=== PATIENT | female | born 1990 | race African-American/Black ===

== ENCOUNTER 2020-12-29 18:17 | Emergency (ER) | payer BC, OTHER ==
[~2020-12-29] VITALS: Ht 160 cm; Wt 71.0 kg
[~2020-12-29 18:17] MED LIST: PRED20TA PO
--- NOTE | 2020-12-29 18:54 | PHYS DOC ---
Past History Past Medical History: No Pertinent History Past Surgical History: No Surgical History, Other Alcohol Use: Rarely Drug Use: None Adult General Chief Complaint Chief Complaint: RECTAL BLEED HPI HPI Patient is a 30-year-old female, otherwise healthy who presents to the emergency department with a chief complaint of bright red rectal bleeding, after a bowel movement when she wipes on the tissue. States she never had anything like this before. States that she is having no real pain with this and only sees the blood, on the tissue after a bowel movement. States is not very much, but has done this over the last 4 days. States that she does not have any hematuria or vaginal bleeding and is having no pain. States she has been having bowel movements almost daily as she usually does but does seem a little harder than usual. States she has had issues with constipation in the past. Denies any recent traumas, travels, fevers, chest pain, shortness of breath, abdominal pain, nausea, vomiting, dysuria, hematuria, diarrhea. Review of Systems Review of Systems Review of systems otherwise unremarkable except noted in HPI Allergies Allergies Allergies Coded Allergies Type Severity Reaction Last Updated Verified Penicillins Allergy Intermediate 07/13/16 Yes ibuprofen Allergy Intermediate rash/swelling 11/28/16 Yes aspirin Allergy Unknown 12/29/20 Yes naproxen Allergy Unknown 12/29/20 Yes Physical Exam Physical Exam Constitutional: Well developed, well nourished, no acute distress, non-toxic appearance. [] HENT: Normocephalic, atraumatic, Eyes: conjunctiva normal, no discharge. [] Cardiovascular:Heart rate regular rhythm, no murmur [] Lungs & Thorax: Bilateral breath sounds clear to auscultation [] Abdomen: soft, no tenderness, no masses, no pulsatile masses. Rectal: No obvious external lesions, trauma or blood. Mild tenderness just inside the rectum on left anterior lateral side with no blood noticed. [] Skin: Warm, dry, no erythema, no rash. [] Back: no CVA tenderness. [] Extremities: No tenderness, no cyanosis, no clubbing, ROM intact, no edema. [] Neurologic: Alert and oriented X 3, normal motor function, normal sensory function, no focal deficits noted. [] Psychologic: Affect normal, judgement normal, mood normal. [] Current Patient Data Vital Signs Vital Signs Date Time Temp Pulse Resp B/P (MAP) Pulse Ox O2 Delivery O2 Flow Rate FiO2 12/29/20 18:29 98.0 78 18 160/84 99 Room Air EKG EKG [] Radiology/Procedures Radiology/Procedures [] Heart Score C/O Chest Pain: No Risk Factors: Risk Factors: DM, Current or recent (<one month) smoker, HTN, HLP, family history of CAD, obesity. Risk Scores: Risk Factors: DM, Current or recent (<one month) smoker, HTN, HLP, family history of CAD, obesity. Course & Med Decision Making Course & Med Decision Making Patient is a 30-year-old female presents to the emergency department with complaints of bright red blood on the tissue when she wipes after a bowel movement Vital signs notable for hypertension which improved over time in the ED. Physical exam noted above. Patient given suppository and Tylenol. negative. Urine with mild hematuria. Urinalysis not concerning. Discussed all findings with patient. Advised on symptom control at home. Advised to follow-up as soon as possible with primary care physician. Gave strict return precautions to the ED. Patient grateful verbalized understanding and agreed with plan of discharge. [] Dragon Disclaimer Dragon Disclaimer This electronic medical record was generated, in whole or in part, using a voice recognition dictation system. Departure Departure: Impression: Primary Impression: Internal hemorrhoid, bleeding Additional Impression: Hematuria Disposition: 01 HOME / SELF CARE / HOMELESS Condition: GOOD Referrals: ESPERANZA HENDERSON CNM (PCP) ISABEL ROMAN Patient Instructions: Hemorrhoids Additional Instructions: Thank you for coming in to the emergency department tonight and allowing us to take care of you. Please read all of the attached information above carefully to go back over things we discussed. Please stop on the way home and pickle pumper the [id number] medicines that we discussed for symptom management at home. Please call your primary care physician in the morning or the one at the number provided to establish care and set up a follow-up visit to discuss your ED visit and need for further evaluation and treatment. Please come back to the emergency department immediately with new or concerning things as we discussed. Problem Qualifiers RADHA PERDOMO MD Dec 29, 2020 18:54
[2020-12-29] MEDS ORDERED: ACETAMINOPHEN 500 MG TABLET PO ONE (19:00)
[2020-12-29] MEDS ORDERED: HYDROCORTISONE ACETATE 25 MG SUPP.RECT PR PRN (19:00)
[2020-12-29 19:46] LABS: BACTERIA,URINE 0 /HPF (0-FEW); BILIRUBIN,URINE NEG (NEG); CLARITY,URINE CLEAR; COLOR,URINE YELLOW; GLUCOSE,URINE NEG (NEG); NITRITE,URINE NEG (NEG); SQUAMOUS EPITHELIAL CELL,UR FEW /LPF; UROBILINOGEN,URINE 0.2 mg/dL (0.2 mg/dL); WBC,URINE OCC /HPF (0-4)
[2020-12-29 20:05] VITALS: BP 139/82
== END 2020-12-29 20:17 | disposition home or self-care (01) ==
LOC: ER 18:17
DX: K64.8 Other hemorrhoids (principal); R31.9 Hematuria, unspecified; Z88.0 Allergy status to penicillin; Z88.6 Allergy status to analgesic agent; Z88.8 Allergy status to other drugs, medicaments and biological substances
CPT/HCPCS: 81001; 81025; 99283